=== PATIENT | female | born 1940 | race Caucasian/White ===

== ENCOUNTER 2018-03-09 06:34 | Outpatient (CLI) | payer MEDICARE, OTHER ==
[~2018-03-09] VITALS: Ht 152.4 cm; Wt 94.3 kg
[2018-03-09] MEDS ORDERED: SIMV10TA3 PO (11:40)
[2018-03-09] MEDS ORDERED: LOSA50TA7 PO (11:40)
[2018-03-09] MEDS ORDERED: METO-387 PO (11:40)
[2018-03-09] MEDS ORDERED: CHOL5000 PO (11:40)
== END 2018-03-09 11:43 | disposition home or self-care (01) ==
LOC: PREOP 06:34
PROVIDERS: ATTEND Surgery
DX: Z01.818 Encounter for other preprocedural examination (principal)

== ENCOUNTER 2018-03-16 12:23 | Day surgery (SDC) | payer MEDICARE, OTHER ==
[~2018-03-16] VITALS: Ht 152.4 cm; Wt 94.3 kg
[~2018-03-16 12:23] MED LIST: CHOL5000 PO; LOSA50TA7 PO; METO-387 PO; SIMV10TA3 PO
--- OUTSIDE RECORDS SUMMARY | 2018-03-16 12:25 | XMS REPORT | Continuity of Care Document ---
Author Author [facility] Organization [facility] Address Unknown Phone Unavailable Allergies Active Description Code Type Severity Reaction Onset Reported/Identified Relationship to Patient Clinical Status Yes No Known Drug Allergies [id number] Drug Allergy Unknown N/A 03/09/2018 Medications There is no data. Problems Date Dx Coded Attending Type Code Diagnosis Diagnosed By 09/15/2014 EMILY BELTRÁN MD Ot 719.46 09/15/2014 EMILY BELTRÁN MD Ot 729.5 03/09/2018 PRERNA PAULSON Ot 562.10 DIVERTICULOSIS COLON (W/O MENT OF HEMORR 03/09/2018 PRERNA PAULSON Ot 959.4 HAND INJURY NOS 03/09/2018 PRERNA PAULSON FABRIC INSPECTOR Ot E000.8 OTHER EXTERNAL CAUSE STATUS 03/09/2018 PRERNA PAULSON Ot E928.9 ACCIDENT NOS 03/09/2018 EMILY BELTRÁN MD Ot 719.46 JOINT PAIN-L/LEG 03/09/2018 EMILY BELTRÁN MD Ot 729.5 PAIN IN LIMB 03/09/2018 KAHLIL ORLANDO DO Ot Z01.818 ENCOUNTER FOR OTHER PREPROCEDURAL EXAMIN 03/16/2018 PRERNA PAULSON Ot 562.10 DIVERTICULOSIS COLON (W/O MENT OF HEMORR 03/16/2018 PRERNA PAULSON Ot 959.4 HAND INJURY NOS 03/16/2018 PRERNA PAULSON Ot E000.8 OTHER EXTERNAL CAUSE STATUS 03/16/2018 PRERNA PAULSON Ot E928.9 ACCIDENT NOS 03/16/2018 EMILY BELTRÁN MD Ot 719.46 JOINT PAIN-L/LEG 03/16/2018 EMILY BELTRÁN MD Ot 729.5 PAIN IN LIMB Procedures There is no data. Results There is no data. Encounters ACCT No. Visit Date/Time Discharge Status Pt. Type Provider Facility Loc./Unit Complaint [id number] 03/09/2018 06:34:00 03/09/2018 11:43:00 DIS Outpatient KAHLIL ORLANDO DO [facility] PREOP COLONOSCOPY [id number] 08/16/2014 11:30:00 08/16/2014 23:59:59 CLS Outpatient EMILY BELTRÁN MD [facility] RAD LEFT KNEE AND FOOT PAIN [id number] 06/14/2013 16:38:00 06/14/2013 23:59:59 CLS Outpatient PRERNA PAULSON [facility] RAD RT THUMB INJ PAIN IN RT HAND [id number] 03/28/2013 11:20:00 03/28/2013 23:59:59 CLS Outpatient PRERNA PAULSONP [facility] RAD ABD PAIN [id number] 03/16/2018 12:23:00 ACT Outpatient KAHLIL ORLANDO DO [facility] ENDO SCREENING/FAMILY HX COLON CA/GERD [id number] 08/16/2014 11:31:21 ACT Document Registration
[2018-03-16 12:35] VITALS: BP 147/86
[2018-03-16] MEDS ORDERED: LACTATED RINGERS 1,000 ML IV ONE (12:38)
[2018-03-16] MEDS ORDERED: LACTATED RINGERS 1,000 ML IV PRN (12:45)
[2018-03-16] MEDS ORDERED: HURRICAINE EXT TUBE (BENZOCAINE) XX PRN (12:45)
[2018-03-16] MEDS ORDERED: PROPOFOL INJECTION 50 ML IV ONE (13:00)
[2018-03-16] MEDS ORDERED: MIDAZOLAM 2 MG/2 ML (VERSED) VIAL ONE (13:00)
[2018-03-16] MEDS ORDERED: HURRICAINE EXT TUBE (BENZOCAINE) ONE (13:05)
--- NOTE | 2018-03-16 13:11 | Progress Note-Pre Operative ---
Pre-Operative Progress Note H&P Reviewed The H&P was reviewed, patient examined and no changes noted. Date Seen by Provider: Mar 16, 2018 Time Seen by Provider: 13:10 Date H&P Reviewed: Mar 16, 2018 Time H&P Reviewed: 13:10 Pre-Operative Diagnosis: gerd, family hx colon cancer KAHLIL ORLANDO DO Mar 16, 2018 13:10
--- NOTE | 2018-03-16 13:58 | Progress Note-Post Operative ---
Post-Operative Progess Note Surgeon (s)/Director Of Global Talent (s) Surgeon KAHLIL ORLANDO DO Director Of Global Talent: na Pre-Operative Diagnosis gerd, family hx colon cancer Post-Operative Diagnosis hiatal hernia, transverse colon polyp Procedure & Operative Findings Date of Procedure 03/16/18 Procedure Performed/Findings egd c biopsies, colonoscopy c snare polypectomy Anesthesia Type per taxi proprietor Estimated Blood Loss Estimated blood loss (mL): na Specimens/Packing Specimens Removed transverse colon polyp, antrum, ge KAHLIL ORLANDO DO Mar 16, 2018 13:58
[2018-03-16] MEDS ORDERED: PANT40TA2 PO (13:59)
--- NOTE | 2018-03-16 14:00 | Discharge Inst-Simple/Standard ---
Discharge Inst-Standard Discharge Medications New, Converted or Re-Newed RX: Transmitted to Pharmacy Patient Instructions/Follow Up Plan of Care/Instructions/FU: 3 weeks malina Activity as Tolerated: Yes Discharge Diet: Regular Diet KAHLIL ORLANDO DO Mar 16, 2018 14:00
[2018-03-16 14:10] VITALS: BP 125/60
--- NOTE | 2018-03-16 14:24 | Anesthesia-General Post-Op ---
General Patient Condition Mental Status/LOC: Same as Preop Cardiovascular: Satisfactory Nausea/Vomiting: Absent Respiratory: Satisfactory Pain: Controlled Complications: Absent Post Op Complications Complications None Follow Up Care/Instructions Patient Instructions None needed. Anesthesia/Patient Condition Patient Condition Patient is doing well, no complaints, stable vital signs, no apparent adverse anesthesia problems. No complications reported per nursing. DASIA CHAPA CRNA Mar 16, 2018 14:24
[2018-03-16 14:30] VITALS: BP 137/109
[2018-03-16 14:40] VITALS: BP 137/109
--- NOTE | 2018-03-16 23:56 | OPERATIVE REPORT ---
DATE OF SERVICE: 03/16/2018 PREOPERATIVE DIAGNOSES: Gastroesophageal reflux disease, family history of colon cancer. POSTOPERATIVE DIAGNOSES: Hiatal hernia, transverse colon polyp. PROCEDURE: EGD with biopsies, colonoscopy with snare polypectomy transverse colon. SURGEON: Harris Ruiz DO. ANESTHESIA: Per FIELD TAX AUDITOR. ESTIMATED BLOOD LOSS: None. COMPLICATIONS: None. INDICATIONS: The patient is a 77-year-old female with GERD and family history of colon cancer. She understands risks and benefits of procedure and wished to proceed with procedure. Consent was signed in the chart. PROCEDURE: The patient was taken to the endoscopy suite, placed in left lateral recumbent position. Timeout was performed. Scope was inserted in mouth, down the esophagus, stomach and into the duodenum. There are no polyps, mass or ulceration of the duodenum. The scope was slowly retracted back into the stomach where it was further insufflated. No polyps, masses or ulcerations in the stomach. Biopsy of the antrum was obtained. There are some very slight erythematous changes. The scope was retroflexed noting a small hiatal hernia. No other pathology noted. The scope was returned to its normal position, slowly withdrawn until the distal esophagus. The GE junction had some erythematous changes consistent with some reflux esophagitis, but minimal. A biopsy of this area was obtained to confirm diagnosis. The patient was then slowly retracted back until completely removed, noting no other pathology. Digital rectal exam was performed. There were no palpable polyps, masses or ulcerations. The scope was inserted in the rectum and advanced all the way to the cecum with minimal difficulty. Prep was adequate. The scope was then slowly retracted back. There were no polyps, mass or ulcerations in the cecum, ascending colon. In the transverse colon around the hepatic flexure, there was a slight pedunculated polyp present, which snare polypectomy was performed. Specimen was obtained for pathology. The scope was then continuously retracted back, then began entering some areas of diverticulosis throughout the transverse, descending and sigmoid colon. No other polyps, masses or ulcerations present. Once in the rectum, scope was retroflexed noting no other pathology. The scope was returned to its normal position, slowly withdrawn until completely removed. The patient tolerated procedure well without any complications. She was taken to recovery room in stable condition. RECOMMENDATIONS: The patient recommended Protonix 40 mg daily. We will see how she is doing, in approximately three weeks to see if there is any improvement of her reflux symptoms. The patient recommended high fiber diet and repeat colonoscopy in 5 years. If any problems prior to that, she should be reevaluated at that time. Job ID: [id number] DocumentID: [id number] Dictated Date: 03/16/2018 14:03:25 Chair Pad Maker Date: 03/16/2018 23:54:40 Dictated By: DO ROBYN WEIR
== END 2018-03-16 14:40 | disposition home or self-care (01) ==
LOC: ENDO 12:23
PROVIDERS: ATTEND Surgery
DX: Z12.11 Encounter for screening for malignant neoplasm of colon (principal); K63.5 Polyp of colon; K21.9 Gastro-esophageal reflux disease without esophagitis; K44.9 Diaphragmatic hernia without obstruction or gangrene; Z80.0 Family history of malignant neoplasm of digestive organs; I10 Essential (primary) hypertension; E66.01 Morbid (severe) obesity due to excess calories; Z68.41 Body mass index [BMI] 40.0-44.9, adult; Z79.899 Other long term (current) drug therapy
CPT/HCPCS: 88305